=== PATIENT | female | born 1990 | race Caucasian/White ===

== ENCOUNTER 2018-11-28 22:43 | Emergency (ER) | payer OTHER ==
[~2018-11-28] VITALS: Ht 167.6 cm; Wt 64.9 kg
[2018-11-28 22:50] VITALS: Ht 167.6 cm; Wt 64.9 kg
[2018-11-28 23:20] LABS: BASOPHIL % 0.3 % (0-2); PLATELET COUNT 209 x10^3mcL (130-400); RED CELL DISTRIBUTION WIDTH 13.8 % (11.5-14.5)
[2018-11-29 00:16] LABS: microscopic required? YES; urine erythrocyte NEGATIVE (NEGATIVE)
[2018-11-29 00:48] VITALS: BP 107/63
== END 2018-11-29 00:48 | disposition home or self-care (01) ==
LOC: ED 22:43
PROVIDERS: Emergency Medicine
DX: O20.0 Threatened abortion (principal); Z88.8 Allergy status to other drugs, medicaments and biological substances
CPT/HCPCS: 36415; Q0092

== ENCOUNTER 2018-12-31 13:12 | Emergency (ER) | payer OTHER ==
[~2018-12-31] VITALS: Ht 167.6 cm; Wt 68.2 kg
[2018-12-31 13:23] VITALS: Ht 167.6 cm; Wt 68.2 kg
[2018-12-31 14:58] LABS: UA SPECIFIC GRAVITY 1.025 (1.005-1.035)
[2018-12-31 14:59] LABS: microscopic required? YES; urine erythrocyte NEGATIVE (NEGATIVE)
[2018-12-31 15:20] VITALS: BP 117/71
== END 2018-12-31 15:20 | disposition home or self-care (01) ==
LOC: ED 13:12
PROVIDERS: Emergency Medicine
DX: O23.42 Unspecified infection of urinary tract in pregnancy, second trimester (principal); Z88.6 Allergy status to analgesic agent; Z3A.21 21 weeks gestation of pregnancy

== ENCOUNTER 2019-04-21 14:39 | Emergency (ER) | payer OTHER ==
[~2019-04-21] VITALS: Ht 170.2 cm; Wt 66.7 kg
[2019-04-21 14:45] VITALS: Ht 170.2 cm; Wt 66.7 kg
[2019-04-21 15:36] LABS: PLATELET COUNT 344 x10^3mcL (130-400); RED CELL DISTRIBUTION WIDTH 14.1 % (11.5-14.5)
[2019-04-21 15:37] LABS: BASOPHIL % 0 % (0-2)
[2019-04-21 16:36] LABS: CALCIUM 7.8 mg/dL (8.5-10.1); CARBON DIOXIDE 27.1 mmol/L (21-32); CHLORIDE SERUM 104 mmol/L (98-107); CREATININE SERUM 0.9 mg/dL (0.6-1.0); GFR1 > 60 mL/min; GLUCOSE SERUM 85 mg/dL (74-106); SODIUM SERUM 138 mmol/L (136-145)
[2019-04-21 16:58] VITALS: BP 103/77
== END 2019-04-21 16:58 | disposition home or self-care (01) ==
LOC: ED 14:39
PROVIDERS: Emergency Medicine
DX: R55 Syncope and collapse (principal); R42 Dizziness and giddiness; R51 Headache; Z88.8 Allergy status to other drugs, medicaments and biological substances
CPT/HCPCS: J7030

== ENCOUNTER 2019-07-02 17:47 | Emergency (ER) | payer OTHER ==
[~2019-07-02] VITALS: Ht 162.6 cm; Wt 66.2 kg
[2019-07-02 18:27] VITALS: Ht 162.6 cm; Wt 66.2 kg
[2019-07-02 18:48] LABS: PLATELET COUNT 242 x10^3mcL (130-400); RED CELL DISTRIBUTION WIDTH 13.5 % (11.5-14.5)
[2019-07-02 18:51] LABS: BASOPHIL % 0 % (0-2)
[2019-07-02 18:59] LABS: CALCIUM 8.9 mg/dL (8.5-10.1); CARBON DIOXIDE 26.1 mmol/L (21-32); CHLORIDE SERUM 104 mmol/L (98-107); CREATININE SERUM 0.9 mg/dL (0.6-1.0); GFR1 > 60 mL/min; GLUCOSE SERUM 115 mg/dL (74-106); SODIUM SERUM 141 mmol/L (136-145)
[2019-07-02 19:04] LABS: ALBUMIN 4.5 g/dL (3.4-5.0); ALKALINE PHOSPHATASE 103 U/L (46-116); ALT/SGPT 27 U/L (14-59); AST/SGOT 27 U/L (15-37); BILIRUBIN TOTAL 0.51 mg/dL (0.20-1.00); TOTAL PROTEIN, SERUM 8.6 g/dL (6.4-8.2)
[2019-07-02 21:49] VITALS: BP 113/66
== END 2019-07-02 21:49 | disposition home or self-care (01) ==
LOC: ED 17:47
DX: A08.4 Viral intestinal infection, unspecified (principal); Z88.8 Allergy status to other drugs, medicaments and biological substances; Z86.2 Personal history of diseases of the blood and blood-forming organs and certain disorders involving the immune mechanism
CPT/HCPCS: J1885; J2405; J7030